=== PATIENT | male | born 1950 | race Two or more races ===

== ENCOUNTER 2022-08-06 12:00 | Inpatient (IN) | payer OTHER ==
[~2022-08-06] VITALS: Ht 162.6 cm; Wt 65.3 kg
[2022-08-06] MEDS ORDERED: COREG CR40 MG PO (14:09)
[2022-08-06] MEDS ORDERED: CRESTOR10 MG PO (14:10)
[2022-08-06] MEDS ORDERED: ELIQUIS5 MG PO (14:10)
[2022-08-06] MEDS ORDERED: ENTRESTO 24 MG1 EACH PO (14:10)
[2022-08-06] MEDS ORDERED: AMIODARONE (14:11)
[2022-08-06] MEDS ORDERED: TRICOR48 MG PO (14:12)
[2022-08-06] MEDS ORDERED: ALDACTONE25 MG PO (14:12)
[2022-08-06] MEDS ORDERED: PANTOPRAZOLE SO40 M2 (14:12)
[2022-08-12] MEDS ORDERED: SYNTHROID50 MCG (10:10)
[2022-08-12] MEDS ORDERED: AMIODARONE HCL200 MG (10:10)
[2022-08-12] MEDS ORDERED: ZANAFLEX2 MG (10:11)
[2022-08-12] MEDS ORDERED: FLONASE16 GM (10:11)
[2022-08-12] MEDS ORDERED: LORAZEPAM1 MG (10:11)
[2022-08-15] MEDS ORDERED: DICLOFENAC SODI75 MG PO (11:16)
== END 2022-08-15 12:31 | disposition home or self-care (01) | DRG 329 ==
LOC: SURG 08-11 06:02 → O/R 08-11 06:02 → SURG 08-11 10:30
PROVIDERS: ADMIT Surgery; ATTEND Surgery
PROC: 0DBP4ZZ Excision of Rectum, Percutaneous Endoscopic Approach (ICD-10-PCS; 2022-08-11)
PROC: 0DBU4ZZ Excision of Omentum, Percutaneous Endoscopic Approach (ICD-10-PCS; 2022-08-11)
PROC: 0DT84ZZ Resection of Small Intestine, Percutaneous Endoscopic Approach (ICD-10-PCS; 2022-08-11)
PROC: 0DBU4ZZ Excision of Omentum, Percutaneous Endoscopic Approach (ICD-10-PCS; 2022-08-11)
PROC: 0D9 Gastrointestinal System, Drainage (ICD-10-PCS; 2022-08-11)
PROC: 0DTN4ZZ Resection of Sigmoid Colon, Percutaneous Endoscopic Approach (ICD-10-PCS; principal; 2022-08-11 10:30)
DX: K57.20 Diverticulitis of large intestine with perforation and abscess without bleeding (principal); K65.1 Peritoneal abscess; I25.10 Atherosclerotic heart disease of native coronary artery without angina pectoris; E11.9 Type 2 diabetes mellitus without complications; I10 Essential (primary) hypertension; Z20.822 Contact with and (suspected) exposure to COVID-19; Z79.4 Long term (current) use of insulin

== ENCOUNTER 2025-01-19 11:31 | Emergency (ER) | payer OTHER ==
[~2025-01-19] VITALS: Ht 165.1 cm; Wt 79.4 kg
[~2025-01-19 11:31] MED LIST: ALDACTONE25 MG PO; AMIODARONE; AMIODARONE HCL200 MG; COREG CR40 MG PO; CRESTOR10 MG PO; DICLOFENAC SODI75 MG PO; ELIQUIS5 MG PO; ENTRESTO 24 MG1 EACH PO; FLONASE16 GM; LORAZEPAM1 MG; PANTOPRAZOLE SO40 M2; SYNTHROID50 MCG; TRICOR48 MG PO; ZANAFLEX2 MG
[2025-01-19 14:50] LABS: HEMATOCRIT 47.8 % (39.0-48.0); HEMOGLOBIN 16.1 g/dL (13-16.00); MEAN CORPUSCULAR HEMOGLOBIN 32.4 pg (27.00-32.0); MEAN CORPUSCULAR HGB CONC 33.7 g/dl (32.0-36.0); PLATELET COUNT 286 K/uL (150-450); RED BLOOD COUNT 4.98 M/uL (4.00-6.00); RED CELL DISTRIBUTION WIDTH 15.1 % (11.5-14.5)
[2025-01-19 15:12] LABS: ALBUMIN 4.3 gm/dL (3.4-5.0); BILIRUBIN TOTAL 0.47 mg/dL (0.3-1.2); CALCIUM 9.5 mg/dL (8.5-10.1); CREATININE SERUM 1.3 mg/dL (0.70-1.30); GFR 54.11; GLOBULINA 3.5 G/DL (2.4-3.5); POTASSIUM 4.86 mEq/L (3.5-5.1); TOTAL PROTEIN 7.8 gm/dL (6.4-8.2)
[2025-01-19] MEDS ORDERED: 0.9 % SODIUM CHLORIDE 1,000 ML IV ONE (20:00)
[2025-01-19] MEDS ORDERED: BUTALB/ACETAMINOPHEN/CAFFEINE 1 TAB TABLET PO ONE (20:00)
[2025-01-19] MEDS ORDERED: DRAMAMINE25 M1 PO (20:44)
== END 2025-01-19 21:08 | disposition home or self-care (01) ==
LOC: ER 11:34
PROVIDERS: Emergency Medicine
DX: R42 Dizziness and giddiness (principal); Z20.822 Contact with and (suspected) exposure to COVID-19
CPT/HCPCS: 36415; 70450; 71046; 93005; 96365; 99284; J7030